=== PATIENT | male | born 1985 | race Caucasian/White ===

== ENCOUNTER 2025-05-03 08:21 | Outpatient (REF) | payer OTHER, MEDICAID, SELFPAY ==
--- NOTE | ~2025-05-03 | XR_ITS ---
EXAMINATION: XR KNEE, RIGHT CLINICAL INFORMATION: M25.569 - Pain in unspecified knee COMPARISON: None available. TECHNIQUE: AP view in standing position both knees. Lateral and sunrise view of the right knee. FINDINGS: No acute cortical disruption or gross malalignment. Joint space narrowing involving mostly the medial compartment with sclerosis along the articular surface. No suprapatellar bursa joint effusion. No lytic or thick lesions. XR/XR knee RT 3V IMPRESSION: Medial compartment osteoarthrosis, mild to moderate. Electronically signed by: Corey Teixeira MD 05/03/2025 03:39 PM EDT
--- OUTSIDE RECORDS SUMMARY | 2025-05-04 08:34 | XMS_ITS | Clinical Summary ---
[place] [address] Care Team Providers Care Apartment Maintenance Supervisor Name Role Phone Unavailable Primary Care Provider Unavailabl e Social History Tobacco Use Types Packs/Day Years Used Date Smoking Tobacco: Never Assessed Sex and Gender Information Value Date Recorded Sex Assigned at Not on file Legal Sex Male 10:49 AM EDT Gender Identity Not on file Sexual Orientation Not on file Plan of Treatment Health Maintenance Due Date Last Done Comments HIV screen 2003 Hepatitis C Screening 2003 Lipid Screening 2003 Hepatitis B vaccine (0-59 yrs) and Risk (1) 2004 Tetanus/Diphtheria/Pertussis Vaccines (1 - Tdap) 04/28 Covid-19 Vaccine ( - season) 2024 Influenza (Flu) vaccine (1 o f 1 - Influenza standard series) 05/24/2025
--- OUTSIDE RECORDS SUMMARY | 2025-05-04 08:36 | XMS_ITS | Clinical Summary ---
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
== END 2025-05-03 08:22 | disposition home or self-care (01) ==
LOC: HO.HOSX 08:21
PROVIDERS: Visit Provider Physician Assistant
DX: S80.01XA Contusion of right knee, initial encounter (principal); M25.561 Pain in right knee; V89.2XXA Person injured in unspecified motor-vehicle accident, traffic, initial encounter
CPT/HCPCS: 73562

== ENCOUNTER 2025-05-03 14:41 | Outpatient (AMB) | payer OTHER, MEDICAID, SELFPAY ==
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
[2025-05-03 14:58] VITALS: BMI 42.1
--- OUTSIDE RECORDS SUMMARY | 2025-05-03 15:05 | XMS_ITS | Clinical Summary ---
Author Organization [facility] Address [address] [place] [address] Phone Care Team Providers Care Hide Sorter Name Role Phone Physician, Pcp Unknown Primary Care Provider Macrina vailable Allergies Active Allergy Reactions Criticality Noted Date Comments Chocolate 06/25/2013 Latex 06/25/2013 Medications cyclobenzaprine (FLEXERIL) 10 mg tablet Take 1 tablet (10 mg total) by mouth 2 (two) times a day if needed for muscle spasms for up to 10 days. 20 tablet 08/26/2024 Active Surgical History Surgery Date Site/Laterality Comments TONSILLECTOMY Medical History Medical History Date Comments Asthma Back pain Migraine Social History Tobacco Use Types Packs/Day Years Used Date Smoking Tobacco: Every Day Cigarettes Smokeless Tobacco: Never Tobacco Cessation:Ready to Q uit: Not Asked; Counseling Given: Not Answered Alcohol Use Standard Drinks/Week Comments Never 0 (1 standard drink = 0.6 oz pur e alcohol) Sex and Gender Information Value Date Recorded Sex Assigned at Male 08/26/2024 4:11 PM EST Legal Sex Male 8:34 PM EST Gender Identity Male 08/26/2024 4:11 PM EST Sexual Orientation Straight 08/26/2024 4: 11 PM EST Obstetrics History Last Filed Vital Signs Vital Sign Reading Time Taken Comments Blood Pressure 131/111 08/26/2024 3:50 PM EST Pulse 95 08/26/2024 3:50 PM EST Temperature 36.7 C (98.1 F) 08/26/2024 3:51 PM EST Respiratory Rate 20 08/26/2024 3:50 PM EST Oxygen Saturation 96% 08/26/2024 3:50 PM EST Inhaled Oxygen Concentration - - Weight 128 kg (282 lb) 08/26/2024 3:50 PM EST Height 175.3 cm (5' 9 ) 08/26/2024 3:50 PM EST Body Mass Index 41.64 08/26/2024 3:50 PM EST Plan of Treatment Health Maintenance Due Date Last Done Comments Hepatitis B Vaccines (1 of 3 - 19+ 3-dose series) 2004 Social Influencers of Health Screening 08/25/2022 COVID-19 Vaccine ( season) 2024 12/17/2023, 03/06/2022, 06/05/2021, Additional history exists Depression Screening 09/23/2024 Influenza Vaccine (#1) 2025 , 07/15/2015, 08/24/2013 Cholesterol Screening (Lipid Panel) 05/08/2027 05/08/2022, 05/08/2022, 12/13/2020 DTaP,Tdap,and Td Vaccines (2 - Td or Tdap) 03/06/2032 03/06/2022 HIV Screening Completed 12/13/2020 Hepatitis C Screening Completed 12/13/2020, 021 Pneumococcal Vaccine: Pediatrics (0 to 5 Years) and At-Risk Patients (6 to 49 Years) Completed 12/17/2023 HIB Vaccines Aged Out No longer eligi ble based on patient's age to complete this topic HPV Vaccines Aged Out No longer eligi ble based on patient's age to complete this topic Hepatitis A Vaccines Aged Out No long er eligible based on patient's age to complete this topic IPV Vaccines Aged Out No longer eligi ble based on patient's age to complete this topic MMR Vaccines Aged Out No longer eligi ble based on patient's age to complete this topic Meningococcal ACWY Vaccine Aged Out N o longer eligible based on patient's age to complete this topic Meningococcal B Vaccine Aged Out No l onger eligible based on patient's age to complete this topic RSV Immunization Patients Under 20 months Aged Out No longer eligible based on patient's age to complete this topic Varicella Vaccines Aged Out No longer eligible based on patient's age to complete this topic Insurance [place] [employer] Advance Directives Documents on File Type Date Recorded Patient [employer] Health Care Decision (hx) 12/26/2009 AD DUNN DIRECTIVE Health Care Decision (hx) 12/26/2009 AD DUNN DIRECTIVE Health Care Decision (hx) 12/26/2009 AD DUNN DIRECTIVE Health Care Decision (hx) 12/26/2009 AD DUNN DIRECTIVE Health Care Decision (hx) 12/26/2009 AD DUNN DIRECTIVE Health Care Decision (hx) 12/26/2009 AD DUNN DIRECTIVE Health Care Decision (hx) 12/26/2009 AD DUNN DIRECTIVE Care Teams Hide Sorter Relationship Specialty Start Date End Date Physician, Pcp Unknown PCP - General 08/26/24
--- OUTSIDE RECORDS SUMMARY | 2025-05-03 15:05 | XMS_ITS | Clinical Summary ---
Author Organization [facility] Address [address] [place] [address] Care Team Providers Care Shift Superintendent Caustic Cresylate Name Role Phone Brian Meneses Primary Care Provider [phone] Source Comments PLEASE NOTE, if this patient is a minor, it may be UNLAWFUL to discuss sensitive information that is contained in these records (such as FAMILY PLANNING, MENTAL HEALTH or SUBSTANCE ABUSE) with the minor patient's parent or other person without the patient's specific authorization.[facility] Allergies Active Allergy Reactions Criticality Noted Date Comments Chocolate 06/25/2013 Latex 06/25/2013 Medications inhalational spacing device UAD 1 Each 1 4 Active budesonide-formo teroL (SYMBICORT) 80-4.5 mcg/actuation inhaler Use 1 puffs every 6 hours prn SOB. 10.2 g 2 5 Active gabapentin (NEURONTIN) 300 mg capsule Take 1 Capsule by mouth 3 (three) times daily. 90 Capsule 3 5 Active naproxen (NAPROSYN) 500 mg tabletIndication s:Back pain, unspecified back location, unspecified back pain laterality, unspecified chronicity Take 1 Tablet by mouth 2 (two) times daily as needed (pain). 60 Tablet 1 5 Active omeprazole (PRILOSEC) [address] capsule Take 1 Capsule by mouth every morning before breakfast. 90 Capsule 1 5 Active loratadine (CLARITIN) 10 mg tabletIndication s:Allergic rhinitis, unspecified seasonality, unspecified trigger Take 1 Tablet by mouth once daily as needed for allergies. 90 Tablet 1 5 Active traZODone (DESYREL) 50 mg tabletIndication s:Insomnia, unspecified type Take 1 Tablet by mouth nightly at bedtime as needed for sleep. 30 Tablet 2 Active mupirocin (BACTROBAN) 2 % ointmentIndicati ons:Cellulitis of skin Apply 1 g topically 3 (three) times daily. 22 g 5 Active Active Problems Problem Noted Date Diagnosed Date Non-seasonal allergic rhinitis 03/16/2025 Gastroesophageal reflux disease without esophagi tis 03/16/2025 Tobacco use 03/16/2025 Financial difficulties 12/17/2023 Lack of housing 12/17/2023 Lack of access to transportation 12/17/2023 Recurrent major depressive d isorder, in partial remission ([facility] V24) 12/17/2023 Overview (12/17/2023): Goes to [facility] Anxiety 12/17/2023 Restless leg syndrome 03/01/2022 Overview (03/01/2022): [facility] Mild persistent asthma without complication ([facility]) 03/01/2022 Compression fracture of L1 vertebra with routine healing 12/05/2020 Overview (12/05/2020): November 2020: consult with endovascular center shows no need for kyphoplasty, continue to monitor due to patient still functional and exercising and young age 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 followed by PSS per vascular note Class 3 severe obesity due t o excess calories without serious comorbidity with body mass index (BMI) of 45.0 to 49.9 in adult ([facility]) 12/13/2018 Right knee pain 03/24/2015 Overview (03/24/2015): [facility] 2014 Xray: negative Sprain or strain of lumbosacral region 3 Resolved Problems Problem Noted Date Diagnosed Date Resolved Date Mild intermittent asthma wit hout complication ([facility]) 07/15/2015 12/17/2023 Depression with anxiety 06/21/2015 03/02/2024 Overview (03/01/2022): February 2022: Will start going to [facility] STD (male) 06/25/2013 12/17/2023 Encounters Date Type Department Care Team Description 04/20/2025 3:00 PM EDT Office Visit [address] [phone] Ceasar Rogel DMD 03/18/2025 Results Follow-Up [address] [phone] Brian Meneses FNP 03/16/2025 1:00 PM EDT Office Visit [address] [phone] Brian Meneses FNP 03/13/2025 12:00 PM EDT Office Visit [address] [phone] Ceasar Rogel DMD from Last 3 Months Immunizations Immunization Administration Dates Next Due Flu, Preservative Free 12/17/2023 INFLUENZA, SEASONAL, INJECTABLE 07/15/2015 INFLUENZA, SEASONAL, INJECTA BLE, PRESERVATIVE FREE 08/24/2013 PFIZER COVID VACCINE, PURPLE CAP, 12+ 03/06/2022 ,06/05/2021,05/05/2021 PNEUMOCOCCAL CONJUGATE PCV 20 (Prevnar 20) 12/16 Pfizer COVID-19 (Comirnaty), Mrna, Lnp-s, Pf, Cristian-sucrose, 30 Mcg/0.3 Ml, 12yr+ 12/17/2023 TDAP 03/06/2022 Family History Medical History Relation Name Comments Hypertension Father Diabetes Maternal Grandfather Other Mother venous insuffic iency of legs Relation Name Status Comments Father Maternal Grandfather Mother Social History Tobacco Use Types Packs/Day Years Used Date Smoking Tobacco: Every Day Cigarettes Smokeless Tobacco: Former Tobacco Cessation:Ready to Q uit: Not Asked; Counseling Given: Not Answered Alcohol Use Standard Drinks/Week Comments Yes 0 (1 standard drink = 0.6 oz pur e alcohol) quit Social Connections Answer Date Recorded Social Connections and Isolation 1 12/17/2023 Financial Resource Strain Answer Date R ecorded Financial Resource Strain 2 2023 Stress Answer Date Recorded Stress 1 01/29/2024 Physical Activity Answer Date Recorded Physical Activity 0 05/16/2019 Food Insecurity Answer Date Recorded Food 2 01/29/2024 Transportation Needs Answer Date Record ed Transportation 1 01/29/2024 Housing Stability Answer Date Recorded Housing 2 01/29/2024 Safety and Environment Answer Date Raphael rded Safety 1 01/29/2024 Utilities Answer Date Recorded Utilities 2 01/29/2024 Employment Answer Date Recorded Employment 0 05/16/2019 Sex and Gender Information Value Date Recorded Sex Assigned at Male 07/26/2017 1:11 PM PDT Legal Sex Male 11:36 AM PDT Gender Identity Male 07/26/2017 1:11 PM PDT Sexual Orientation Straight 07/26/2017 1: 11 PM PDT Last Filed Vital Signs Vital Sign Reading Time Taken Comments Blood Pressure 140/94 04/20/2025 3:15 PM EDT Pulse 81 04/20/2025 3:15 PM EDT Temperature 36.6 C (97.8 F) 03/16/2025 2:06 PM EDT Respiratory Rate 20 03/16/2025 2:06 PM EDT Oxygen Saturation 96% 03/16/2025 2:06 PM EDT Inhaled Oxygen Concentration - - Weight 139.1 kg (306 lb 9.6 oz) 03/16/2025 2:06 PM EDT Height 175.3 cm (5' 9 ) 03/16/2025 2:06 PM EDT Body Mass Index 45.28 03/16/2025 2:06 PM EDT Plan of Treatment Upcoming Encounters Date Type Department Care Team (Late st Contact Info) Description 05/14/2025 1:40 PM EDT Office Visit [facility] [address] [place] [phone] Ceasar Rogel DMD [address] [place] [address] 06/28/2025 1:40 PM EDT Office Visit [facility] [address] [place] [phone] Barb Santo [address] [place] [address] Health Maintenance Due Date Last Done Comments Imm-Hepatitis A (1 of 2 - Ri sk 2-dose series) 2004 [id number] ( season) 2024 12/17/2023, 03/06/2022, 06/05/2021, Additional history exists Tobacco Cessation Counseling (#1) 12/16/2024 024, 03/01/2022 Dental Examination 01/11/2025 01/10/2024 Imm-Influenza (#1) 2025 12/17/2023, 0 06/13/2017, 07/15/2015, Additional history exists Depression Monitoring 06/16/2025 03/16/2025 , 03/01/2022, 12/13/2020 Dental BW 12/27/2025 12/25/2024, 12/22, 01/10/2024, Additional history exists Dental Perio Charting 12/27/2025 12/25/2024 , 01/10/2024, 04/30/2022 Dental Prophy 12/27/2025 12/25/2024, 12/22, 04/30/2022 Annual Wellness (Adult): Indicated (All Coverage) 03/16/2026 03/16/2025, 12/17/2023, 12/13/2020, Additional history exists Anxiety Screening 03/16/2026 03/16/2025 LTBI Screening (#1) 03/16/2026 03/16/2025 Hypertension Screening (#1) 04/20/2026 Diabetes Screening 03/16/2028 03/16/2025, 0 03/16/2025, 05/08/2022, Additional history exists Lipid Screening 03/16/2028 03/16/2025, 04/23, 12/13/2020, Additional history exists Dental FMX/Pano 01/11/2029 01/10/2024 Imm-DTaP/Tdap/Td (2 - Td or Tdap) 03/06/2032 022 Imm-Pneumococcal Completed 12/17/2023 Alcohol and Drug Screen Completed 03/16/20, 12/17/2023, 03/01/2022, Additional history exists HIV Screening Completed 03/16/2025, 11/22, 01/10/2017, Additional history exists Hepatitis C Screening Completed 03/16/2025 , 12/13/2020, 01/10/2017, Additional history exists Imm-Hepatitis B Discontinued Procedures Procedure Name Priority Date/Time Associated Diagnosis Comments 11 MDL RESIN-BASED COMPOSITE THREE SURFACES ANTERIOR Routine 04/20/2025 3:00 PM EDT [facility] CASE PRESENTATION SUBS DTL & EXTENSIVE TX PLN Routine 04/20/2025 3:00 PM EDT [facility] QUANTIFERON-TB GOLD PLUS Routine 03/16/2025 3:02 PM EDT Examination, medical, general SYPHILIS ANTIBODY CASCADING REFLEX Routine 03/16/2025 3:02 PM EDT Examination, medical, general HEPATITIS B CORE AB TOTAL Routine 03/16/2025 3:02 PM EDT Examination, medical, general HEPATITIS B SURF ANTIBODY HBSAB Routine 03/16/2025 3:02 PM EDT Examination, medical, general HEPATITIS B SURFACE AG, EIA WITH REFLEX CONFIRM Routine 03/16/2025 3:02 PM EDT Examination, medical, general HEPATITIS C AB W/RFLX HCV RNA, QT, RT PCR Routine 03/16/2025 3:02 PM EDT Examination, medical, general HIV 1/2 AG & AB W/RFLX (4TH GEN) Routine 03/16/2025 3:02 PM EDT Examination, medical, general HEMOGLOBIN GLYCOSYLATED A1C Routine 03/16/2025 3:02 PM EDT Examination, medical, general THYROID CASCADING REFLEX PANEL Routine 03/16/2025 3:02 PM EDT Examination, medical, general LIPID PANEL Routine 03/16/2025 3:02 PM EDT Examination, medical, general COMPREHENSIVE METABOLIC PANEL Routine 03/16/2025 3:02 PM EDT Examination, medical, general BLOOD COUNT COMPLETE AUTO&AUTO DIFRNTL WBC Routine 03/16/2025 3:02 PM EDT Examination, medical, general 22 DL RESIN-BASED COMPOSITE TWO SURFACES ANTERIOR Routine 03/13/2025 12:00 PM EDT Caries 21 MODB(V) RESIN COMPOS - FOUR OR MORE SURFACES POSTERIOR Routine 03/13/2025 12:00 PM EDT Caries CASE PRESENTATION SUBS DTL & EXTENSIVE TX PLN Routine 03/13/2025 12:00 PM EDT [facility] COMP PERIODONTAL EVALUATION - NEW/EST PATIENT Routine 12/25/2024 3:00 PM EDT Caries BITEWINGS - FOUR RADIOGRAPHIC IMAGES Routine 12/25/2024 3:00 PM EDT [facility]ies PROPHYLAXIS - ADULT Routine 12/25/2024 3 :00 PM EDT Caries INTRAORAL - COMP SERIES OF RADIOGRAPHIC IMAGES Routine 01/10/2024 1:00 PM EDT Chronic gingivitis, plaque induced Defective dental islam Caries Dental caries on smooth surface penetrating into dentin Dental caries on smooth surface penetrating into pulp Encounter for dental examination and cleaning with abnormal findings PERIODIC ORAL EVALUATION ESTABLISHED PATIENT Routine 01/10/2024 1:00 PM EDT Chronic gingivitis, plaque induced Caries Dental caries on smooth surface penetrating into dentin Dental caries on smooth surface penetrating into pulp Encounter for dental examination and cleaning with abnormal findings from Last 3 Months or Most Recently Relevant to Health Maintenance Results * QUANTIFERON-TB GOLD PLUS Routine (03/16/2025 3:02 PM EDT) [facility] QUANTIFERON NEGATIVE NEGATIVE [facility] Comment: Negative test result. M. tuberculosis complex infection unlikely. NIL 0.02 IU/mL [facility] MITOGEN-NIL >10.00 IU/mL [facility] TB1-NIL 0.02 IU/mL [facility] TB2-NIL 0.06 IU/mL [facility] Comment: The Nil tube value reflects the background interferon gamma immune response of the patient's blood sample. This value has been subtracted from the patient's displayed TB and Mitogen results. Lower than expected results with the Mitogen tube prevent false-negative Quantiferon readings by detecting a patient with a potential immune suppressive condition and/or suboptimal pre-analytical specimen handling. The TB1 Antigen tube is coated with the M. tuberculosis-specific antigens designed to elicit responses from TB antigen primed CD4+ helper T-lymphocytes. The TB2 Antigen tube is coated with the M. tuberculosis-specific antigens designed to elicit responses from TB antigen primed CD4+ helper and CD8+ cytotoxic T-lymphocytes. For additional information, please refer to https://Balaya.Thinkature.Aspects Software/faq/UER875 (This link is being provided for informational/ educational purposes only.) Blood Blood / Unknown 03/16/2025 3 :02 PM EDT 03/16/2025 3:03 PM EDT Narrative [facility] - 03/19/2025 4:09 AM EDT PATIENT UNABLE TO VOID; ADVISED TO RETURN FOR COLLECTION. us Brian SANTAP LAB - BLOOD DRAW Final Re sult [facility] [address] [address], [facility] [address] [place] [address] * HEPATITIS C AB W/RFLX HCV RNA, QT, RT PCR Routine (03/16/2025 3:02 PM EDT) HEPATITIS C ANTIBODY NON-REACT DULCE NON-REACT DULCE [facility] Comment: HCV antibody was non-reactive. There is no laboratory evidence of HCV infection. In most cases, no further action is required. However, if recent HCV exposure is suspected, a test for HCV RNA (test code 99335) is suggested. For additional information please refer to http://Balaya.Thinkature.Aspects Software/faq/SUC78i2 (This link is being provided for informational/ educational purposes only.) Blood Blood / Unknown 03/16/2025 3 :02 PM EDT 03/16/2025 3:03 PM EDT Meryl [facility] - 03/19/2025 4:09 AM EDT PATIENT UNABLE TO VOID; ADVISED TO RETURN FOR COLLECTION. us Brian SANTAP LAB - BLOOD DRAW Edited [facility] Performing Organization Address [facility] Co de Phone Number [facility] [address] [address], [place] [address] [address] * SYPHILIS ANTIBODY CASCADING REFLEX Routine (03/16/2025 3:02 PM EDT) T. PALLIDUM AB, EIA NEGATIVE NEGATIVE [employer] [facility] Comment: No antibodies to T. pallidum (the agent causing syphilis) were detected in the specimen. This result, however, does not exclude very recent T. pallidum infection; testing of a second specimen, collected 2-4 weeks after this specimen, is recommended if the index of suspicion for recent infection is high. Blood Blood / Unknown 03/16/2025 3 :02 PM EDT 03/16/2025 3:03 PM EDT Narrative [facility] - 03/19/2025 4:09 AM EDT PATIENT UNABLE TO VOID; ADVISED TO RETURN FOR COLLECTION. [facility] LAB - BLOOD DRAW Edited [facility] Performing Organization Address [facility] de Phone Number [facility] [address] [address], [place] [address] [address] * HIV 1/2 AG & AB W/RFLX (4TH GEN) Routine (03/16/2025 3:02 PM EDT) HIV Screen Final See Note [facility] Comment: HIV Negative HIV-1 antigen and HIV-1/HIV-2 antibodies were not detected. There is no laboratory evidence of HIV infection. HIV AG/AB, 4TH GEN NON-REACT DULCE NON-REACT DULCE [facility] Blood Blood / Unknown 03/16/2025 3 :02 PM EDT 03/16/2025 3:03 PM EDT Narrative [facility] - 03/19/2025 4:09 AM EDT PATIENT UNABLE TO VOID; ADVISED TO RETURN FOR COLLECTION. [facility] Zaira FNP LAB - BLOOD DRAW Final Re sult Performing Organization Address [facility] Co de Phone Number [facility] [address] [address], [facility] [address] [address] * THYROID CASCADING REFLEX PANEL Routine (03/16/2025 3:02 PM EDT) Pathologist [facility] TSH 1.66 0.40 - 4.50 mIU/L [facility] Blood Blood / Unknown 03/16/2025 3 :02 PM EDT 03/16/2025 3:03 PM EDT Narrative [facility] [place] [facility] - 03/19/2025 4:09 AM EDT PATIENT UNABLE TO VOID; ADVISED TO RETURN FOR COLLECTION. [facility] Zaria FNP LAB - BLOOD DRAW Edited R esult - Final Performing Organization Address [facility] de Phone Number [facility] [address] [address], [facility] [address] [address] * HEPATITIS B SURFACE AG, EIA WITH REFLEX CONFIRM Routine (03/16/2025 3:02 PM EDT) Pathologist [facility] HEPATITIS B SURFACE ANTIGEN NON-REACT DULCE NON-REACT DULCE [facility] COMMENT [facility] Blood Blood / Unknown 03/16/2025 3 :02 PM EDT 03/16/2025 3:03 PM EDT Narrative [facility] - 03/19/2025 4:09 AM EDT PATIENT UNABLE TO VOID; ADVISED TO RETURN FOR COLLECTION. For additional information, please refer to http://education.2d2c/faq/HAX437 (This link is being provided for informational/ educational purposes only.) [facility] Zaira FNP LAB - BLOOD DRAW Edited R [facility]ult - Final Performing Organization Address [facility] Co de Phone Number [facility] [employer] [address] [address], [place] [address] [address] * HEPATITIS B CORE AB TOTAL Routine (03/16/2025 3:02 PM EDT) Pathologist [facility] HEPATITIS B CORE AB TOTAL NON-REACT DULCE NON-REACT DULCE [facility] COMMENT [facility] Blood Blood / Unknown 03/16/2025 3 :02 PM EDT 03/16/2025 3:03 PM EDT Narrative [facility]NOST[facility] [employer] - 03/19/2025 4:09 AM EDT PATIENT UNABLE TO VOID; ADVISED TO RETURN FOR COLLECTION. For additional information, please refer to http://education.2d2c/faq/JGF230 (This link is being provided for informational/ educational purposes only.) Brian Meneses [facility] LAB - BLOOD DRAW Edited R Friend [employer] - Final Performing Organization Address [facility]/ZIP Co de Phone Number [facility] [address] [address], [facility] [address] [address] * (ABNORMAL) HEPATITIS B SURF ANTIBODY HBSAB Routine (03/16/2025 3:02 PM EDT) Pathologist [facility] HEPATITIS B SURFACE ANTIBODY QL REACTIVE( A) NON-REACT DULCE [facility] Blood Blood / Unknown 03/16/2025 3 :02 PM EDT 03/16/2025 3:03 PM EDT Narrative [facility] - 03/19/2025 4:09 AM EDT PATIENT UNABLE TO VOID; ADVISED TO RETURN FOR COLLECTION. Brian Meneses [facility] LAB - BLOOD DRAW Edited R [facility] [employer] - Final Performing Organization Address City/[facility]/ZIP Co de Phone Number [facility] [address] [address], [place] [address] [address] * (ABNORMAL) BLOOD COUNT COMPLETE AUTO&AUTO DIFRNTL WBC Routine (03/16/2025 3:02 PM EDT) WHITE BLOOD CELL COUNT 7.7 3.8 - 10.8 Thousand/ uL [facility] RED BLOOD CELL COUNT 5.44 4.20 - 5.80 Million/u L [facility] HEMOGLOBIN 17.0 13.2 - 17.1 g/dL [facility] HEMATOCRIT 53.0(H) 38.5 - 50.0 % [facility] MCV 97.4 80.0 - 100.0 fL [facility] MCH 31.3 27.0 - 33.0 pg [facility] MCHC 32.1 32.0 - 36.0 g/dL [facility] Comment: For adults, a slight decrease in the calculated MCHC value (in the range of 30 to 32 g/dL) is most likely not clinically significant; however, it should be interpreted with caution in correlation with other red cell parameters and the patient's clinical condition. RDW 13.6 11.0 - 15.0 % [facility] PLATELET COUNT 300 140 - 400 Thousand/ uL [facility] MPV 9.6 7.5 - 12.5 fL [facility] ABSOLUTE NEUTROPHILS 5,067 1,500 - 7,800 cells/uL [facility] ABSOLUTE LYMPHOCYTES 1,617 850 - 3,900 cells/uL [facility] ABSOLUTE MONOCYTES 747 200 - 950 cells/uL [facility] ABSOLUTE EOSINOPHILS 208 15 - 500 cells/uL [facility] ABSOLUTE BASOPHILS 62 0 - 200 cells/uL [facility] NEUTROPHILS PCT 65.8 % [facility] [employer] LYMPHOCYTES 21.0 % [facility] [employer] MONOCYTES 9.7 % [facility] [employer] EOSINOPHILS 2.7 % [facility] BASOPHILS 0.8 % [facility] [employer] Blood Blood / Unknown 03/16/2025 3 :02 PM EDT 03/16/2025 3:03 PM EDT Narrative [facility] - 03/19/2025 4:09 AM EDT PATIENT UNABLE TO VOID; ADVISED TO RETURN FOR COLLECTION. Brian SANTAP LAB - BLOOD DRAW Edited R esult - Final Performing Organization Address [facility] Co de Phone Number [facility] [address] [address], [facility] [address] [address] * HEMOGLOBIN GLYCOSYLATED A1C Routine (03/16/2025 3:02 PM EDT) HEMOGLOBIN A1C 5.6 <5.7 % [facility] Comment: For the purpose of screening for the presence of diabetes: <5.7% Consistent with the absence of diabetes 5.7-6.4% Consistent with increased risk for diabetes (prediabetes) > or =6.5% Consistent with diabetes This assay result is consistent with a decreased risk of diabetes. Currently, no consensus exists regarding use of hemoglobin A1c for diagnosis of diabetes in children. According to [place] Diabetes Association (ADA) guidelines, hemoglobin A1c <7.0% represents optimal control in non- diabetic patients. Different metrics may apply to specific patient populations. Standards of Medical Care in Diabetes(ADA). Blood Blood / Unknown 03/16/2025 3 :02 PM EDT 03/16/2025 3:03 PM EDT Narrative [facility] - 03/19/2025 4:09 AM EDT PATIENT UNABLE TO VOID; ADVISED TO RETURN FOR COLLECTION. us Brian Meneses [facility] LAB - BLOOD DRAW Edited [employer] - Final Performing Organization Address [facility] Co de Phone Number [facility] [address] [address], [place] [address] [address] * (ABNORMAL) LIPID PANEL Routine (03/16/2025 3:02 PM EDT) CHOLESTEROL, TOTAL 158 <200 mg/dL [facility] HDL CHOLESTEROL 37(L) > OR = 40 mg/dL [facility] TRIGLYCERIDES 113 <150 mg/dL [facility] LDL-CHOLESTEROL 100(H) 99 mg/dL (calc) [employer] [facility] Comment: Reference range: <100 Desirable range <100 mg/dL for primary prevention; <70 mg/dL for patients with CHD or diabetic patients with > or = 2 CHD risk factors. LDL-C is now calculated using the Yolanda calculation, which is a validated novel method providing better accuracy than the Friedewald equation in the estimation of LDL-C. Hu MENDOZA et al. VIJAYA. 2013;310(19): 2013-0104 (http://education.Rockerbox/faq/YWY139) CHOL/HDLC RATIO 4.3 <5.0 (calc) [facility] NON-HDL CHOLESTEROL 121 <130 mg/dL (calc) [facility] Comment: For patients with diabetes plus 1 major ASCVD risk factor, treating to a non-HDL-C goal of <100 mg/dL (LDL-C of <70 mg/dL) is considered a therapeutic option. Blood Blood / Unknown 03/16/2025 3 :02 PM EDT 03/16/2025 3:03 PM EDT Narrative [facility] - 03/19/2025 4:09 AM EDT PATIENT UNABLE TO VOID; ADVISED TO RETURN FOR COLLECTION. Brian Meneses [facility] LAB - BLOOD DRAW Final Re sult [facility] [address] [address], [facility] [address] [place] [phone] * COMPREHENSIVE METABOLIC PANEL Routine (03/16/2025 3:02 PM EDT) GLUCOSE 93 65 - 99 mg/dL [facility] Comment: Fasting reference interval UREA NITROGEN (BUN) 11 7 - 25 mg/dL [facility] CREATININE (blood) 1.06 0.60 - 1.26 mg/dL [facility] EGFR 92 > OR = 60 mL/min/1. 73m2 [facility] BUN/CREATININE RATIO SEE NOTE: [facility] Comment: Not Reported: BUN and Creatinine are within reference range. SODIUM 138 135 - 146 mmol/L [facility] POTASSIUM 4.3 3.5 - 5.3 mmol/L [facility] CHLORIDE 104 98 - 110 mmol/L [facility] CARBON DIOXIDE 26 20 - 32 mmol/L [facility] CALCIUM 9.1 8.6 - 10.3 mg/dL [facility] PROTEIN, TOTAL 7.4 6.1 - 8.1 g/dL [facility] ALBUMIN 4.2 3.6 - 5.1 g/dL [facility] GLOBULIN 3.2 1.9 - 3.7 g/dL (calc) [facility] ALBUMIN/GLOBULI N RATIO 1.3 1.0 - 2.5 (calc) [facility] BILIRUBIN, TOTAL 0.7 0.2 - 1.2 mg/dL [employer] [facility] ALKALINE PHOSPHATASE 56 36 - 130 U/L [facility] AST 20 10 - 40 U/L [facility] ALT 28 9 - 46 U/L [facility] Blood Blood / Unknown 03/16/2025 3 :02 PM EDT 03/16/2025 3:03 PM EDT Narrative [facility] - 03/19/2025 4:09 AM EDT PATIENT UNABLE TO VOID; ADVISED TO RETURN FOR COLLECTION. Brian Meneses DIRECTOR OF CONSERVATION LAB - BLOOD DRAW Edited R esult - Final [facility] [address] [address], [facility] [address] [place] [phone] from Last 3 Months Insurance [place] [facility] [facility] [address] ACO Care Teams Shift Superintendent Caustic Cresylate Relationship Specialty Start Date End Date Brian Meneses FNP [address] [place] [address] PCP - General Family Medicine, CLERK ANALYST 10/27/20
== END 2025-05-03 15:38 | disposition home or self-care (01) ==
LOC: HO.HOS 14:41
PROVIDERS: Visit Provider Physician Assistant
DX: S80.01XA Contusion of right knee, initial encounter (principal)
CPT/HCPCS: 99204

== ENCOUNTER → 2025-05-03 14:43 | Outpatient (BNV) | payer OTHER, MEDICAID, SELFPAY | PROVIDERS: Visit Provider Radiology Diagnostic Radiology | DX: M17.11 Unilateral primary osteoarthritis, right knee (principal) | CPT/HCPCS: 73562 ==